=== PATIENT | male | born 1975 | race Caucasian/White ===

== ENCOUNTER 2018-03-05 18:46 | Emergency (ER) | payer MEDICAID ==
[~2018-03-05] VITALS: Ht 185.4 cm; Wt 70.2 kg
[~2018-03-05 18:46] MED LIST: BETA15CR TOP; NO HOME MEDS
[2018-03-05 18:53] VITALS: BP 116/66
[2018-03-05] MEDS ORDERED: SULF1TAB49 PO (19:28)
[2018-03-05] MEDS ORDERED: CEPH-572 PO (19:28)
== END 2018-03-05 19:39 | disposition home or self-care (01) ==
LOC: ER 18:46
DX: L02.512 Cutaneous abscess of left hand (principal); F15.90 Other stimulant use, unspecified, uncomplicated; Z56.0 Unemployment, unspecified; Z88.0 Allergy status to penicillin
CPT/HCPCS: 99283

== ENCOUNTER 2020-04-06 05:50 | Emergency (ER) | payer MEDICAID ==
[~2020-04-06] VITALS: Ht 185.4 cm; Wt 75.0 kg
[2020-04-06] MEDS ORDERED: CefTRIAXone 1000mg IM Kit (w/lidocaine diluent) IM ONE (06:10)
[2020-04-06] MEDS ORDERED: metroNIDAZOLE 500mg tablet PO ONE (06:10)
[2020-04-06] MEDS ORDERED: azithromycin 250mg tablet PO ONE (06:10)
[2020-04-06 06:57] LABS: CLARITY,URINE CLOUDY (Clear); COLOR,URINE YELLOW (Yellow); GLUCOSE, URINE NEGATIVE (Neg); KETONES,URINE NEGATIVE (Neg); LEUKOCYTE ESTERASE ,URINE SMALL (Neg); NITRITES, URINE NEGATIVE (Neg); OCCULT BLOOD,URINE SMALL (Neg); PROTEIN,URINE NEGATIVE (Neg); UROBILINOGEN,URINE 0.2 E.U/dL (0.2-1.0)
[2020-04-06 07:17] LABS: UA COLLECTION TYPE NON-SPECIFIED
[2020-04-06 07:21] LABS: BACTERIA,URINE 1+ /HPF (Neg); RBC,URINE 0-2 /HPF (0-2); SQUAMOUS EPITHELIAL CELL,UR NONE SEEN /LPF (FEW); WBC,URINE TNTC /HPF (0-4)
[2020-04-06] MEDS ORDERED: SULF1TAB49 PO (07:31)
[2020-04-06 08:07] VITALS: BP 106/71
== END 2020-04-06 08:09 | disposition home or self-care (01) ==
LOC: ER 05:51
DX: A64 Unspecified sexually transmitted disease (principal); N39.0 Urinary tract infection, site not specified; F15.90 Other stimulant use, unspecified, uncomplicated; Z56.0 Unemployment, unspecified; Z72.89 Other problems related to lifestyle; Z88.0 Allergy status to penicillin; Z79.899 Other long term (current) drug therapy
CPT/HCPCS: 36415; 81001; 87088; 87491; 87591; 96372; 99283; J0696; J3490

== ENCOUNTER 2025-02-04 18:09 | Emergency (ER) | payer MEDICAID ==
[~2025-02-04] VITALS: Ht 185.4 cm; Wt 66.4 kg
[2025-02-04 18:24] VITALS: BP 117/78; PULSE 87; RESP 18; TEMP 98.2; O2SAT 98
[2025-02-04] MEDS ORDERED: SULF1TAB49 PO (20:31)
--- NOTE | 2025-02-04 20:32 | Physician Documentation ---
History of Present Illness ~ Chief Complaint: Finger pain Stated Complaint: FINGER PAIN Time Seen by MD: 20:23 Primary Medical Doctor: none HPI Patient presents to the emergency room for evaluation of his right index finger. He states he woke up with a wound on his finger and he does not know how it occurred. No fevers. Tetanus within 5 years: Yes Medication Reconciliation Allergies: Coded Allergies: Penicillins (Verified Allergy, Severe, ANAPHYLAXIS, 02/04/25) >5 years, angioedema, treatment required, PEN-FAST 4 Miscellaneous Medications Home Med List (No Home Medications), (Reported) Discontinued Medications Betamethasone/Propylene Glyc (Diprolene AF 0.05% Cream), 5 G TOP BID Discontinued Reason: patient no longer taking Past Medical History Past Medical History: No Pertinent History Past Surgical History: no surgical history Alcohol Use: Occasionally Drug Use: methamphetamine Lives with: Family Lives In: Home Occupation: unemployed Review of Systems ROS All review of systems negative except as per HPI Physical Exam Vital Signs: Temperature: 98.2, Source: Temporal, Heart Rate: 87, Respiratory Rate: 18, BP: 117/78, Pulse Oximetry: 98, Weight: 66.400 Oxygen Flow Rate: 0 Physical Exam General: Patient is awake, alert, oriented x4 in no acute distress and well appearing.~ Head: Normocephalic and atraumatic. Eyes: Conjunctival normal. EOMI. PERRL. ENT: Mucous membranes moist. Neck: Supple, trachea is midline. Chest: Clear to auscultation bilaterally without rales, rhonchi, or wheezes. There is no accessory muscle use or retractions. Cardiac: RRR without murmurs, gallops, or rubs. Extremities: Patient with a 0.5 cm abrasion on the right 2nd digit in between the MP and PIP joints with associated cellulitis measuring 3 cm x 5 cm. Movements intact Progress Results/Orders Results/Orders Vital Signs 02/04/25 18:24 Temp 98.2 Pulse 87 Resp 18 B/P (MAP) 117/78 Pulse Ox 98 O2 Flow Rate 0 Medical Decision Making Findings Patient presents to the emergency room with finger pain as per HPI. Differentials include but are not limited to cellulitis, foreign body, abrasion, laceration, sepsis. Physical exam is reassuring as are vitals and he had not feel emergent labs or imaging is necessary. I do not suspect tenosynovitis. We will treat for cellulitis with ER precautions discussed. Tetanus reported to be up-to-date Departure Disposition: HOME / SELF CARE / HOMELESS Impression: Primary Impression: Cellulitis Condition: Stable Discharge Instructions: Cellulitis, Adult, [id number] Referrals: NO PRIMARY CARE PROVIDER (PCP) Prescriptions Sulfamethoxazole/Trimethoprim (Bactrim Ds Tablet) 800 Mg-160 Mg Tablet 1 TAB PO Q12H for 10 Days, #20 TAB Prov: DIMITRIOS MORALES MD 02/04/25 Education Educated: Patient Educated regarding: diagnosis, treatment, need for follow up Signature Scribe Signature: No scribe Attestation: The note accurately reflects work and decisions made by me.Dimitrios Morales MD 02/04/25 20:31 DIMITRIOS MORALES MD Feb 04, 2025 20:32
[2025-02-04] MEDS: ondansetron 4mg rapidly disintigrating tab PO ONE (20:56)
[2025-02-04] MEDS: ibuprofen tablet 400 MG TABLET PO ONE (20:57)
[2025-02-04] MEDS: sulfamethoxazole/trimethoprim DS (800/160mg) tablet PO ONE ×2 (20:57→21:04)
[2025-02-04] MEDS: bacitracin 15gm ointment TP ONE (20:58)
== END 2025-02-04 21:04 | disposition home or self-care (01) ==
LOC: ER 18:10
DX: L03.011 Cellulitis of right finger (principal)
CPT/HCPCS: 99284